=== PATIENT | male | born 1945 | race Caucasian/White ===

== ENCOUNTER 2016-12-21 08:40 | Inpatient (IN) | payer OTHER ==
[2016-12-21] VITALS (11 sets, daily range): BP systolic 79–130; BP diastolic 47–71
[~2016-12-21] VITALS: Ht 172.7 cm; Wt 77.1 kg
[~2016-12-21 08:40] MED LIST: ADVAIR 100/501 DISK IH; ADVAIR 250/501 DISK IH; ALLOPURINOL100 MG PO; ASPIR 8181 M1 PO; ATROVENT 00.5 MG/2.5 IH; AUGMENTIN875 MG PO; Advair HFA 115/21 IH; Aspirin GT; Ativan IV; BACTRIM,SEPT1 TABLET PO; CEFDINIR300 MG PO; CEFTIN500 MG PO; CORDARONE200 MG PO; Cordarone, Pacerone PO; DALIRESP500 MCG PO; DELTASONE20 MG PO; DIABETA,MICRONAS5 MG PO; DILAUDID1 MG/ML IV; DOCU SOFT100 MG PO; DOCUSATE SODIU100 MG PO; DUONEB 2.5-0.5 M3 ML AEROSOL; DUONEB 2.5-0.5 M3 ML IH; Dextrose 50% in Wate IV; Diabeta,Micronase PO; ELIQUIS2.5 MG PO; ELIQUIS5 MG PO; GLUCAGEN1 MG IM/SC; GLUCOPHAGE XR1000 MG PO; GLUCOPHAGE1000 MG PO; GLUMETZA1000 M1 PO; Heparin Sodium SC; JANUVIA25 MG PO; K-DUR10 MEQ PO; LASIX40 MG PO; LATANOPROST2.5 ML BOTH EYES; LEVAQUIN500 MG PO; LEVAQUIN750 MG PO; LEVEMIR100 UNIT/2 SC; LIPITOR80 MG PO; LISINOPRIL-HCT1 EAC3 PO; LO-DOSE ASPIRIN81 M1 PO; LOPRESSOR50 MG PO; Lactinex,Floranex PO; Lipitor PO; Lopressor PO; METFORMIN HCL1000 M1 PO; METFORMIN HCL1000 MG PO; METFORMIN HCL500 MG PO; METOPROLOL SUCC25 MG PO; METOPROLOL TART25 MG PO; METOPROLOL TART50 MG PO; MUCINEX DM ER1 EACH PO; NIACIN500 M1 PO; NORVASC10 MG PO; NOVOLOG 10100 UNITS/ SC; NOVOLOG PE100 UNITS/ SC; Niacin PO; PLAVIX75 MG PO; PREDNISONE10 MG PO; PREDNISONE5 MG PO; PROBIOTIC250 MG PO; PROVENTIL,2.5 MG/0.5 IH; Peridex PO; Prevacid Solutab GT; RANITIDINE HCL150 M1 PO; Robitussin, Organidi PO; SIMVASTATIN20 MG PO; SIMVASTATIN40 MG PO; SIMVASTATIN80 MG PO; SLO-NIACIN500 MG PO; Singulair PO; Solu-MEDROL IV; Tylenol Liquid PO; Tylenol Regular Stre PO; VENTOLIN HFA18 GM IH; VERSED IV; VITAMIN D31000 UNIT PO; Vancomycin IV; XALATAN2.5 ML; XALATAN2.5 ML BOTH EYES; Xalatan 0.005% Ophth BOTH EYES; ZANTAC150 MG PO; ZESTORETIC 20-1 EAC1 PO; ZESTRIL20 MG PO; ZITHROMAX500 MG PO; ZOCOR80 MG PO; ZYLOPRIM100 MG PO; Zestoretic,Prinzide PO; Zestril,Prinivil PO; Zocor PO; Zofran IV; Zosyn IV; Zyloprim GT; [UNRECOGNIZED DRUG - OTHER] BOTH EYES; predniSONE PO
[2016-12-21 08:50] LABS: BASE EXCESS -10.3 mEq/L (-3 to +3); CARBOXY HGB 1.7 % (0-5); METHEMOGLOBIN 0.9 % (0-1.5)
[2016-12-21 08:51] LABS: COMMENTS - BLOOD GASES A+C+; DEVICE 840 PB; PCO2 111 mm Hg (35-45); PO2 122 mm Hg (80-100); SITE RR; pH 6.96 (7.35-7.45)
[2016-12-21 08:52] LABS: FI02 100 %; MECHANICAL RATE 18 resp/min; MODE AC; PEEP 10 CM/H20; TIDAL VOLUME 500 ML; TOTAL RESP RATE 18 resp/min
[2016-12-21 09:02] LABS: PLATELET COUNT 330 K/uL (156-360)
[2016-12-21 09:09] LABS: HEMATOCRIT 53.7 % (38.0-50.0); MCH 27.2 PG (29.0-34.0); MCHC 31.1 G/DL (30.0-36.0); MCV 87.5 FL (86-99); RBC DIS.WIDTH-SD 49.9 % (39-53); RED BLOOD COUNT 6.14 M/uL (4.00-5.50)
[2016-12-21 09:12] LABS: WHITE BLOOD COUNT 32.8 K/uL (4.1-10.2)
[2016-12-21 09:14] LABS: CHLORIDE 106 mEq/L (99-109); POTASSIUM 5.6 mEq/L (3.7-5.4); SODIUM 139 mEq/L (136-147)
[2016-12-21 09:15] LABS: INTER. NORMALIZED RATIO 1.1; PROTHROMBIN TIME 11.1 (9.2-11.2); PTT 28.4 (25-32)
[2016-12-21 09:16] LABS: GLUCOSE 285 mg/dL (70-99)
[2016-12-21 09:18] LABS: ANION GAP 11 MEQ/L (2-14); TOTAL BILIRUBIN 0.5 mg/dL (0.0-1.0)
[2016-12-21 09:20] LABS: ALKALINE PHOSPHATASE 107 IU/L (3-129); GFR ESTIMATE (CALCULATED) 32 mL/min/
[2016-12-21 09:21] LABS: UREA NITROGEN (BUN) 31 mg/dL (9-23)
[2016-12-21 09:26] LABS: TROP-I INTERPRETATION NEGATIVE; TROPONIN-I 0.03 ng/mL (0.0-0.30)
[2016-12-21 10:25] LABS: BASE EXCESS -6.5 mEq/L (-3 to +3); BICARBONATE 23.1 mEq/L (22-26); CARBOXY HGB 1.5 % (0-5); METHEMOGLOBIN 0.9 % (0-1.5); PO2 107 mm Hg (80-100)
[2016-12-21 10:26] LABS: COMMENTS - BLOOD GASES A+C+; DEVICE 840 PB; FI02 100 %; MECHANICAL RATE 24 resp/min; MODE AC; PCO2 62 mm Hg (35-45); PEEP 10 CM/H20; SITE LR; TIDAL VOLUME 500 ML; TOTAL RESP RATE 24 resp/min; pH 7.18 (7.35-7.45)
[2016-12-21 12:04] LABS: ABS NEUTROPHIL COUNT 21.7; ANISOCYTOSIS 1+; ATYPICAL LYMPHOCYTE 13.9 %; BASOPHILS 0.9 %; EOSINOPHIL ABS CT 0; INSTRUMENT ABS NEUTROPHIL CT 21.1 K/uL; LYMPHOCYTES 7.8 % (15.0-45.0); MICROCYTOSIS 1+; PLAT.SUFFICIENCY ADEQUATE; POIKILOCYTOSIS 1+; POLYCHROMASIA 1+; SEG.NEUTROPHILS 66.1 % (46.0-76.0)
[2016-12-21 13:31] LABS: BICARBONATE 20.8 mEq/L (22-26); CARBOXY HGB 1.2 % (0-5); METHEMOGLOBIN 1.2 % (0-1.5); PCO2 64 mm Hg (35-45); PO2 86 mm Hg (80-100); SITE RR
[2016-12-21 13:32] LABS: DEVICE VENT; FI02 100 %; MECHANICAL RATE 24 resp/min; MODE AC; PEEP 10 CM/H20; TIDAL VOLUME 500 ML; TOTAL RESP RATE 25 resp/min; pH 7.12 (7.35-7.45)
[2016-12-21 14:38] LABS: METH RESISTANT S AUREUS PCR NEGATIVE (NEGATIVE); PROBE CHECK PASS; SPECIMEN PROCESSING CONTROL PASS
[2016-12-21 15:15] LABS: ADD MIUA? YES; BILIRUBIN NEGATIVE; BLOOD SMALL; COLOR YELLOW ((YELLOW)); GLUCOSE (STRIP) 150; KETONES NEGATIVE; LEUKOCYTES NEGATIVE; NITRITE NEGATIVE; PROTEIN (STRIP) 30; UROBILINOGEN 0.2 MG/DL (0.2-1.0)
[2016-12-21 15:30] LABS: EPITHELIAL CELLS RARE /HPF; MUCUS 1+ /LPF; RED BLOOD CELLS 0-5 /HPF (0-5)
[2016-12-21 15:31] LABS: BACTERIA 2+ /HPF; CASTS PRESENT /LPF; HYALINE CASTS 0-5 /LPF; UCUL ADDED? YES
[2016-12-21] MEDS ORDERED: NIACIN500 M4 PO (16:00)
[2016-12-21] MEDS ORDERED: ADVAIR 250/501 DISK IH (16:00)
[2016-12-21] MEDS ORDERED: LOPRESSOR50 MG PO (16:00)
[2016-12-21 16:01] LABS: BASE EXCESS -13.3 mEq/L (-3 to +3); BICARBONATE 17.1 mEq/L (22-26); CARBOXY HGB 1.4 % (0-5); METHEMOGLOBIN 1.3 % (0-1.5); PCO2 55 mm Hg (35-45); PO2 98 mm Hg (80-100)
[2016-12-21] MEDS ORDERED: ZANTAC150 MG PO (16:01)
[2016-12-21] MEDS ORDERED: ELIQUIS5 MG PO (16:01)
[2016-12-21] MEDS ORDERED: ZYLOPRIM100 MG PO (16:01)
[2016-12-21] MEDS ORDERED: DUONEB 2.5-0.5 M3 ML AEROSOL (16:01)
[2016-12-21] MEDS ORDERED: LO-DOSE ASPIRIN81 M2 PO (16:01)
[2016-12-21] MEDS ORDERED: NORVASC10 MG PO (16:02)
[2016-12-21] MEDS ORDERED: PREDNISONE5 MG PO (16:02)
[2016-12-21 16:03] LABS: DEVICE VENT; FI02 100 %; MECHANICAL RATE 28 resp/min; MODE AC; PEEP 10 CM/H20; SITE LR; TIDAL VOLUME 500 ML; TOTAL RESP RATE 28 resp/min
[2016-12-21] MEDS ORDERED: ROCALTROL0.25 MCG PO (16:03)
[2016-12-21] MEDS ORDERED: VITAMIN D31000 UNI2 PO (16:03)
[2016-12-21] MEDS ORDERED: PROAIR HFA8.5 GM IH (16:05)
[2016-12-21] MEDS ORDERED: ZOCOR20 MG PO (16:05)
[2016-12-21] MEDS ORDERED: LASIX20 MG PO (16:05)
[2016-12-21] MEDS ORDERED: K-DUR10 MEQ PO (16:05)
[2016-12-21] MEDS ORDERED: GLUCOPHAGE500 MG PO (16:06)
[2016-12-21] MEDS ORDERED: JANUVIA25 MG PO (16:06)
[2016-12-21 19:14] LABS: BASE EXCESS -9.8 mEq/L (-3 to +3); BICARBONATE 19.3 mEq/L (22-26); CARBOXY HGB 1.4 % (0-5); COMMENTS - BLOOD GASES C+; DEVICE 840 VENT; FI02 100 %; MECHANICAL RATE 28 resp/min; METHEMOGLOBIN 1.5 % (0-1.5); MODE AC; PCO2 53 mm Hg (35-45); PO2 106 mm Hg (80-100); SITE ALINE; TOTAL RESP RATE 28 resp/min; pH 7.17 (7.35-7.45)
[2016-12-21 19:15] LABS: PEEP 10 CM/H20; TIDAL VOLUME 500 ML
[2016-12-21 19:25] LABS: MCHC 31.3 G/DL (30.0-36.0); MCV 86.2 FL (86-99); MEAN PLAT.VOLUME 11.4 uM^3 (9.0-12.4); NRBC (%) 0.1 /100 WBC (0-0); PLATELET COUNT 316 K/uL (156-360); RBC DIS.WIDTH-CV 16.1 % (11.8-14.6); RBC DIS.WIDTH-SD 49.1 % (39-53); RED BLOOD COUNT 6.03 M/uL (4.00-5.50)
[2016-12-21 19:27] LABS: WHITE BLOOD COUNT 37.3 K/uL (4.1-10.2)
[2016-12-21 19:29] LABS: INTER. NORMALIZED RATIO 1.4; PROTHROMBIN TIME 14.4 (9.2-11.2); PTT 31.2 (25-32)
[2016-12-21 20:17] LABS: HEMATOCRIT 52.4 % (38.0-50.0); MCHC 31.3 G/DL (30.0-36.0); MCV 86.3 FL (86-99); RBC DIS.WIDTH-CV 15.8 % (11.8-14.6); RBC DIS.WIDTH-SD 49.1 % (39-53); RED BLOOD COUNT 6.07 M/uL (4.00-5.50); WHITE BLOOD COUNT 37.6 K/uL (4.1-10.2)
[2016-12-21 20:20] LABS: ALKALINE PHOSPHATASE 89 IU/L (3-129); ANION GAP 10 MEQ/L (2-14); CHLORIDE 110 MEQ/L (99-109); SAMPLE HEMOLYSIS CHECK 0; SAMPLE ICTERIC CHECK 0; SAMPLE LIPEMIA CHECK 0; SODIUM 138 MEQ/L (136-147); UREA NITROGEN (BUN) 39 mg/dL (9-23)
[2016-12-21 20:22] LABS: MEAN PLAT.VOLUME 11.4 uM^3 (9.0-12.4); NRBC (%) 0.1 /100 WBC (0-0); PLAT.SUFFICIENCY ADEQUATE; PLATELET COUNT 293 K/uL (156-360)
[2016-12-21 20:30] LABS: GFR ESTIMATE (CALCULATED) 19 mL/min/; GLUCOSE 106 mg/dL (70-99); POTASSIUM 7.3 MEQ/L (3.7-5.4)
[2016-12-21 21:24] LABS: TROP-I INTERPRETATION NEGATIVE; TROPONIN-I 0.14 ng/mL (0.0-0.30)
[2016-12-22 00:11] LABS: BASE EXCESS -7.3 mEq/L (-3 to +3); BICARBONATE 21.2 mEq/L (22-26); CARBOXY HGB 1.6 % (0-5); COMMENTS - BLOOD GASES C+; DEVICE 980 VENT; FI02 80 %; MECHANICAL RATE 28 resp/min; METHEMOGLOBIN 1.8 % (0-1.5); MODE AC; PCO2 53 mm Hg (35-45); PEEP 8 CM/H20; PO2 72 mm Hg (80-100); SITE ALINE; TIDAL VOLUME 500 ML; TOTAL RESP RATE 28 resp/min; pH 7.21 (7.35-7.45)
[2016-12-22 00:36] LABS: MEAN PLAT.VOLUME 11.6 uM^3 (9.0-12.4); PLATELET COUNT 258 K/uL (156-360)
[2016-12-22 00:41] LABS: HEMATOCRIT 47.4 % (38.0-50.0); MCH 27.7 PG (29.0-34.0); MCHC 32.3 G/DL (30.0-36.0); MCV 85.7 FL (86-99); RBC DIS.WIDTH-CV 15.4 % (11.8-14.6); RBC DIS.WIDTH-SD 47.9 % (39-53); RED BLOOD COUNT 5.53 M/uL (4.00-5.50)
[2016-12-22 00:42] LABS: WHITE BLOOD COUNT 34.4 K/uL (4.1-10.2)
[2016-12-22 01:01] LABS: TROP-I INTERPRETATION NEGATIVE; TROPONIN-I 0.15 ng/mL (0.0-0.30)
[2016-12-22 01:06] LABS: CHLORIDE 110 mEq/L (99-109); SODIUM 142 mEq/L (136-147)
[2016-12-22 01:07] LABS: MAGNESIUM 1.6 mg/dL (1.3-2.7)
[2016-12-22 01:08] LABS: GLUCOSE 79 mg/dL (70-99)
[2016-12-22 01:10] LABS: ANION GAP 14 MEQ/L (2-14)
[2016-12-22 01:12] LABS: GFR ESTIMATE (CALCULATED) 17 mL/min/
[2016-12-22 01:13] LABS: UREA NITROGEN (BUN) 45 mg/dL (9-23)
[2016-12-22 01:14] LABS: POTASSIUM 5.8 mEq/L (3.7-5.4)
[2016-12-22 07:13] LABS: ALKALINE PHOSPHATASE 72 IU/L (3-129); ANION GAP 18 MEQ/L (2-14); CHLORIDE 106 MEQ/L (99-109); GFR ESTIMATE (CALCULATED) 14 mL/min/; GLUCOSE 52 mg/dL (70-99); POTASSIUM 7.4 MEQ/L (3.7-5.4); SAMPLE HEMOLYSIS CHECK 0; SAMPLE ICTERIC CHECK 0; SAMPLE LIPEMIA CHECK 0; SODIUM 143 MEQ/L (136-147); TOTAL BILIRUBIN 0.8 MG/DL (0.0-1.0); UREA NITROGEN (BUN) 53 mg/dL (9-23)
[2016-12-22 11:59] LABS: POINT-OF-CARE METER ID UU14162636
== END 2016-12-22 15:36 | DRG 208 ==
LOC: EME → EDBD 08:40 → EDOF 11:58 → 4WEST 13:23
PROVIDERS: Emergency Medicine; Internal Medicine Critical Care Medicine
DX: J96.02 Acute respiratory failure with hypercapnia (principal); R57.9 Shock, unspecified; J18.9 Pneumonia, unspecified organism; I50.23 Acute on chronic systolic (congestive) heart failure; E87.2 Acidosis; I13.0 Hypertensive heart and chronic kidney disease with heart failure and stage 1 through stage 4 chronic kidney disease, or unspecified chronic kidney disease; N18.9 Chronic kidney disease, unspecified; J44.9 Chronic obstructive pulmonary disease, unspecified; E11.22 Type 2 diabetes mellitus with diabetic chronic kidney disease; I48.0 Paroxysmal atrial fibrillation; E78.5 Hyperlipidemia, unspecified; Z66 Do not resuscitate; I25.2 Old myocardial infarction; Z99.81 Dependence on supplemental oxygen; Z95.2 Presence of prosthetic heart valve; Z86.74 Personal history of sudden cardiac arrest; Z79.51 Long term (current) use of inhaled steroids; Z79.01 Long term (current) use of anticoagulants; Z79.82 Long term (current) use of aspirin; Z87.891 Personal history of nicotine dependence
CPT/HCPCS: 36600; 70450; 71010; 80048 91; 80053; 81003; 82803; 82948; 83605; 83735; 83880; 84100; 84484; 85025; 85027; 85610; 85730; 87040; 87070; 87077; 87086; 87185; 87205; 87641; 93005; 93975; 94002; 94003; 94640; 94640 76; 99281; 99285; J0456; J0696; J1940; J2250; J2270; J2543; J2704; J2930; J3010; J3370; J7050; J7070; J7120